=== PATIENT | male | born 1945 | race Hispanic/Latino ===

== ENCOUNTER 2018-11-03 07:31 | Day surgery (SDC) | payer MEDICARE ==
[2018-11-03 08:34] LABS: Basophils # (Auto) 0.1 K/mm3 (0.0-0.1); Basophils % (Auto) 0.7 % (0.0-1.8); Eosinophils # (Auto) 0.4 K/mm3 (0.0-0.4); Hematocrit 50.9 % (35.5-45.6); Hemoglobin 17.4 gm/dl (11.8-15.2); Lymphocytes # (Auto) 1.4 K/mm3 (1.2-5.4); Mean Corpuscular HGB Conc 34 % (32-34); Mean Corpuscular Volume 98 fl (84-94); Monocytes # (Auto) 0.7 K/mm3 (0.0-0.8); Monocytes % (Auto) 7.4 % (0.0-7.3); Platelet Count 270 K/mm3 (140-440); Red Blood Count 5.18 M/mm3 (3.65-5.03); Red Cell Distribution Width 13.8 % (13.2-15.2)
[2018-11-03 08:43] LABS: INR 0.97 (0.87-1.13)
[2018-11-03 08:44] LABS: Partial Thromboplastin Time 25.2 Sec. (24.2-36.6)
[2018-11-03 08:49] LABS: BUN/Creatinine Ratio 19; Blood Urea Nitrogen 17 mg/dL (9-20); Calcium 9.3 mg/dL (8.4-10.2); Hemolysis Index 60
[2018-11-03] MEDS ORDERED: NACL 0.9% 500 ML 500 ML IV SCH (09:00)
[2018-11-03] MEDS ORDERED: VERSED ONE (09:53)
[2018-11-03] MEDS ORDERED: SUBLIMAZE ONE (09:54)
[2018-11-03] MEDS ORDERED: HEPARIN/NS 5000 UNIT/500ML(CATH LAB) 1,000 ML IR ONE (09:55)
[2018-11-03] MEDS ORDERED: HEPARIN 10,000 UNITS/10 ML ONE (09:55)
[2018-11-03] MEDS ORDERED: NITROGLYCERIN SYRINGE 0 ML ONE (09:55)
[2018-11-03] MEDS ORDERED: XYLOCAINE 2% INFILTRATI ONE (09:55)
[2018-11-03] MEDS ORDERED: ECOTRIN PO ONE (10:00)
--- NOTE | 2018-11-03 11:29 | Discharge Summary ---
Short Stay Discharge Plan Activity: advance as tolerated Weight Bearing Status: Partial Weight Bearing Diet: low fat, low cholesterol, low salt Wound: keep clean and dry Special Instructions: no heavy lifting (3 days) Follow up with: LYNDSEY GOYAL MD [Primary Care Provider] - 7 Days NICK DC MD [Staff Physician] - 7 Days
[2018-11-03] MEDS ORDERED: NACL 0.9% 1000 ML 1,000 ML IV SCH (12:00)
--- NOTE | 2018-11-03 12:14 | Cardiac Catherization Report ---
CARDIAC CATHETERIZATION REASON FOR PROCEDURE: The patient is a 73-year-old man with a history of pulmonary fibrosis, on home and ambulatory oxygen, who was referred to my office for cardiac evaluation of progressive dyspnea and lower extremity edema. We recommended further cardiac and pulmonary evaluation with right and left heart catheterization. PROCEDURES: 1. Right heart catheterization. 2. Left heart catheterization. 3. Selective left and right coronary angiography. 4. Left ventricle angiography. 5. Sedation time, start 10:29, end 11:20. The patient was prepped and draped in a sterile fashion after informed consent. The right femoral artery and vein were both entered using Seldinger technique followed by placement of a 6-Tamazight sheath in the artery and an 8-Tamazight sheath in the vein. A [place] catheter was then advanced to the pulmonary artery position. A pigtail catheter was advanced into the left ventricle. Cardiac output was then measured using the thermodilution method. Simultaneous left and right heart filling pressures were then recorded. The [place] catheter was then withdrawn and right heart pressures recorded on pullback. Left ventricle angiography was then performed following which the pigtail catheter was withdrawn across the aortic valve and transaortic pressures recorded. We then performed selective left and right coronary angiography. Angiography of the right coronary artery was done with a #4 right Cesilia and left coronary angiography was done with a #3.5 left Cesilia. The catheters were then withdrawn, sheath removed, and hemostasis achieved using manual compression. The patient was returned to the postprocedure unit in stable condition. There were no complications. FINDINGS: HEMODYNAMICS: Mean right atrial pressure was 10. Right ventricular pressure was 80/10. Pulmonary artery pressure was 80/40. The mean pulmonary artery wedge pressure was 15. Left ventricular end-diastolic pressure was 12-15. Cardiac output was 4.4 liters per minute. Mitral valve colon: Simultaneous left ventricular and diastolic pulmonary artery wedge pressures demonstrated a mean transmitral valve gradient of 7.4 mmHg. This was consistent with mild mitral stenosis with a calculated valve area of 1.8 square cm using the Gorlin equation. Aortic valve: The ascending aortic pressure was 120 mmHg. On pullback across the aortic valve, there was a 20 mm [id number] gradient, and a mean gradient of 20.4 mmHg. The aortic valve area was 1.01 square cm, consistent with mild aortic stenosis. CORONARY ANGIOGRAPHY: There was moderate to severe calcification, diffusely affecting the left main and proximal to mid left anterior descending artery. There was a 70-80% ostial stenosis of the left main coronary artery associated with heavy calcification of the ostium. Following this, mild irregularities were noted of the mid and distal left main. The proximal to mid left anterior descending artery was heavily calcified, but contained only mild diffuse atherosclerosis. The circumflex artery and its obtuse marginal branches contained diffuse mild atherosclerosis. The right coronary artery was dominant, and contained mild luminal irregularities. Left ventricle was at the upper limits of normal in size. There was mild left ventricular systolic dysfunction with mild diffuse hypokinesis, left ventricular ejection fraction 40-45%. CONCLUSION: 1. Mild aortic stenosis, with a mean transaortic gradient of 20.4 mmHg. 2. Mild mitral stenosis with a mean transmitral gradient of 7.4 mmHg. 3. Severe pulmonary hypertension with a pulmonary artery systolic pressure of 80 mmHg. 4. Severe ostial left main coronary artery disease, 70-80% ostial left main. 5. Mild left ventricular systolic dysfunction, ejection fraction 40-45%. RECOMMENDATION: The patient will be referred for CT surgical assessment of the ostial left main stenosis. He will be a suboptimal candidate for thoracic surgery on account of his chronic pulmonary fibrosis and his chronic hypoxemia. [facility]# [id number] [place]
[2018-11-03] MEDS ORDERED: ULTRAM PO PRN (13:38)
[2018-11-03 17:39] VITALS: BP 110/70
== END 2018-11-03 18:00 | disposition critical access hospital (66) ==
LOC: CATHLABREC 07:31
PROVIDERS: ATTEND Internal Medicine Cardiovascular Disease
DX: I25.10 Atherosclerotic heart disease of native coronary artery without angina pectoris (principal); I35.0 Nonrheumatic aortic (valve) stenosis; I05.0 Rheumatic mitral stenosis; I27.20 Pulmonary hypertension, unspecified; J84.10 Pulmonary fibrosis, unspecified; E78.00 Pure hypercholesterolemia, unspecified; I10 Essential (primary) hypertension; G47.30 Sleep apnea, unspecified; R94.31 Abnormal electrocardiogram [ECG] [EKG]; K21.9 Gastro-esophageal reflux disease without esophagitis; Z79.899 Other long term (current) drug therapy; Z87.891 Personal history of nicotine dependence; Z98.890 Other specified postprocedural states; Z98.49 Cataract extraction status, unspecified eye; Z82.49 Family history of ischemic heart disease and other diseases of the circulatory system; Z79.01 Long term (current) use of anticoagulants
CPT/HCPCS: 36415; 80048; 85025; 85610; 85730; 93005; 93010; 93460; 99156; 99157; C1769; C1894; J1644; J2250; J3010; J7040; Q9967